=== PATIENT | female | born 1950 ===

== ENCOUNTER → 2022-12-02 | Outpatient (CLI) | payer MEDICARE, OTHER ==
[2022-12-05 15:08] LABS: HPV 16 Negative (Negative); HPV 18 Negative (Negative); HPV OTHER HR TYPES Negative (Negative)
== END ==
LOC: LAB 15:27 → LAB SHORT 15:27
PROVIDERS: Advanced Practice Midwife
DX: Z01.419 Encounter for gynecological examination (general) (routine) without abnormal findings (principal)
CPT/HCPCS: 87624; G0145

== ENCOUNTER 2024-04-24 18:24 | Emergency (ER) | payer MEDICARE, OTHER ==
[~2024-04-24] VITALS: Ht 160 cm; Wt 36.3 kg
[2024-04-24] MEDS ORDERED: Methocarbamol 500 MG Tab PO ONE (19:00)
[2024-04-24 19:22] LABS: Source, Urine Clean Catch
[2024-04-24 19:34] LABS: Appearance, Urine Clear (Clear); Bilirubin, Urine Neg (Neg); Blood, Urine 2+ (Neg); Glucose Qualitative, Urine Neg (Neg); Ketones, Urine Neg (Neg); Leukocyte Esterase, Urine Neg (Neg); Nitrite, Urine Neg (Neg); Protein, Urine Neg (Neg); Specific Gravity, Urine 1.015 (1.003-1.022); Urobilinogen, Urine NORM (Normal)
[2024-04-24 19:41] LABS: Color, Urine Pale Yellow (P-Yellow)
[2024-04-24 19:43] LABS: Bacteria Rare /hpf; Squamous Epithelial Cells Rare /hpf (Few); White Blood Cells, Urine 0-2 /hpf (0-5)
[2024-04-24 20:01] VITALS: BP 168/91
[2024-04-24] MEDS ORDERED: Robaxin750 MG PO (20:55)
[2024-04-24] MEDS ORDERED: Voltaren100 GM TOP (20:55)
[2024-04-24] MEDS ORDERED: LIDO700A20 TOP (20:55)
[2024-04-25] MEDS ORDERED: Voltaren100 GM TOP (09:19)
[2024-04-25] MEDS ORDERED: LIDO700A20 TOP (09:20)
== END 2024-04-24 21:30 | disposition home or self-care (01) ==
LOC: ER 18:24
PROVIDERS: Student in an Organized Health Care Education/Training Program
DX: S39.012A Strain of muscle, fascia and tendon of lower back, initial encounter (principal); X58.XXXA Exposure to other specified factors, initial encounter; M54.16 Radiculopathy, lumbar region; I10 Essential (primary) hypertension
CPT/HCPCS: 81001; 99283-25; A9270; P9612

== ENCOUNTER → 2024-04-29 | Outpatient (CLI) | payer MEDICARE, OTHER ==
[~2024-04-29] MED LIST: LIDO700A20 TOP; Robaxin750 MG PO; Voltaren100 GM TOP
== END | disposition home or self-care (01) ==
LOC: LAB 19:13 → LAB SHORT 19:13
DX: R31.29 Other microscopic hematuria (principal)
CPT/HCPCS: 87086

== ENCOUNTER 2024-05-20 13:36 | Emergency (ER) | payer MEDICARE, OTHER ==
[~2024-05-20] VITALS: Ht 157.5 cm; Wt 42.6 kg
[2024-05-20 14:18] VITALS: BP 138/79
[2024-05-20 15:19] LABS: BASOPHILS ABSOLUTE AUTO 0.02 K/mm3 (0.00-0.23); BASOPHILS PERCENT AUTO 1 % (0-2); EOSINOPHILS ABSOLUTE AUTO 0.01 K/mm3 (0.00-0.68); EOSINOPHILS PERCENT AUTO 0 % (0-6); Hematocrit 35.8 % (33.0-51.0); IMMATURE GRAN ABSOLUTE AUTO 0.02 K/mm3 (0.00-0.10); IMMATURE GRAN PERCENT AUTO 1 % (0-1); LYMPHOCYTES ABSOLUTE AUTO 0.66 K/mm3 (0.84-5.20); LYMPHOCYTES PERCENT AUTO 17 % (21-46); MONOCYTES ABSOLUTE AUTO 0.48 K/mm3 (0.16-1.47); MONOCYTES PERCENT AUTO 13 % (4-13); Mean Corpuscular HGB 29.6 pg (26.0-34.0); Mean Corpuscular HGB Conc 33.5 g/dL (31.5-36.5); Mean Corpuscular Volume 88 fL (80-100); Mean Platelet Volume 10.3 fL (9.1-12.4); NEUTROPHILS ABSOLUTE AUTO 2.64 K/mm3 (1.96-9.15); NEUTROPHILS PERCENT AUTO 69 % (41-73); Platelet Count 222 K/mm3 (150-400); RDW Coefficient Variation 13.2 % (11.7-14.2); RDW Standard Deviation 43.3 fL (35.1-46.3); Red Blood Cell Count 4.06 M/mm3 (3.80-5.20); White Blood Cell Count 3.83 K/mm3 (4.00-11.30)
[2024-05-20 15:40] LABS: Albumin, Blood 3.1 g/dL (3.4-5.0); Albumin/Globulin Ratio 0.8 (0.8-1.8); Bilirubin, Total 0.3 mg/dL (0.1-1.0); Bun/Creatinine Ratio 19.9 (12.0-20.0); Calcium, Blood 8.8 mg/dL (8.5-10.1); Creatinine, Blood 0.5 mg/dL (0.40-1.00); Globulin, Blood 4.1 g/dL (2.2-4.0); Potassium, Blood 4.5 mmol/L (3.5-5.5); Total Protein, Blood 7.2 g/dL (6.4-8.2)
[2024-05-20] MEDS ORDERED: Lasix20 MG PO (16:51)
== END 2024-05-20 17:35 | disposition home or self-care (01) ==
LOC: ER 13:36
PROVIDERS: Student in an Organized Health Care Education/Training Program
DX: R60.0 Localized edema (principal); I87.2 Venous insufficiency (chronic) (peripheral)
CPT/HCPCS: 80053; 85025; 93970; 99284-25

== ENCOUNTER 2024-05-22 16:32 | Emergency (ER) | payer MEDICARE, OTHER ==
[~2024-05-22] VITALS: Ht 157.5 cm; Wt 42.6 kg
[~2024-05-22 16:32] MED LIST changes: +Lasix20 MG PO
[2024-05-22] MEDS ORDERED: Acetaminophen 500 MG Tab PO ONE (19:15)
[2024-05-22] MEDS ORDERED: Ketorolac Tromethamine 30mg Vial IV ONE (19:15)
[2024-05-22] MEDS ORDERED: Ibuprofen600 MG PO (19:17)
[2024-05-22] MEDS ORDERED: ACET500 PO (19:17)
[2024-05-22 20:35] VITALS: BP 137/64
== END 2024-05-22 20:45 | disposition home or self-care (01) ==
LOC: ER 16:32
DX: M80.88XA Other osteoporosis with current pathological fracture, vertebra(e), initial encounter for fracture (principal); I10 Essential (primary) hypertension; Z79.899 Other long term (current) drug therapy
CPT/HCPCS: 96374; 99283-25; A9270; J1885

== ENCOUNTER 2024-05-25 17:57 | Inpatient (IN) | payer MEDICARE, OTHER ==
[~2024-05-25] VITALS: Ht 160 cm; Wt 42.6 kg
[~2024-05-25 17:57] MED LIST changes: +ACET500 PO; +Ibuprofen600 MG PO
[2024-05-25 18:28] LABS: BASOPHILS ABSOLUTE AUTO 0.03 K/mm3 (0.00-0.23); BASOPHILS PERCENT AUTO 1 % (0-2); EOSINOPHILS ABSOLUTE AUTO 0.03 K/mm3 (0.00-0.68); EOSINOPHILS PERCENT AUTO 1 % (0-6); Hematocrit 30.8 % (33.0-51.0); Hemoglobin 10.2 g/dL (11.5-16.0); IMMATURE GRAN ABSOLUTE AUTO 0.02 K/mm3 (0.00-0.10); IMMATURE GRAN PERCENT AUTO 0 % (0-1); LYMPHOCYTES ABSOLUTE AUTO 0.75 K/mm3 (0.84-5.20); LYMPHOCYTES PERCENT AUTO 16 % (21-46); MONOCYTES ABSOLUTE AUTO 0.69 K/mm3 (0.16-1.47); MONOCYTES PERCENT AUTO 15 % (4-13); Mean Corpuscular HGB 29.7 pg (26.0-34.0); Mean Corpuscular HGB Conc 33.1 g/dL (31.5-36.5); Mean Corpuscular Volume 90 fL (80-100); Mean Platelet Volume 9.2 fL (9.1-12.4); NEUTROPHILS ABSOLUTE AUTO 3.15 K/mm3 (1.96-9.15); NEUTROPHILS PERCENT AUTO 68 % (41-73); Platelet Count 243 K/mm3 (150-400); RDW Coefficient Variation 13.4 % (11.7-14.2); Red Blood Cell Count 3.44 M/mm3 (3.80-5.20); White Blood Cell Count 4.67 K/mm3 (4.00-11.30)
[2024-05-25 18:41] LABS: Source, Urine Voided
[2024-05-25 18:48] LABS: Appearance, Urine Clear (Clear); Bilirubin, Urine Neg (Neg); Blood, Urine 1+ (Neg); Glucose Qualitative, Urine Neg (Neg); Ketones, Urine Neg (Neg); Leukocyte Esterase, Urine Neg (Neg); Nitrite, Urine Neg (Neg); Protein, Urine Neg (Neg); Specific Gravity, Urine 1.005 (1.003-1.022); Urobilinogen, Urine NORM (Normal)
[2024-05-25 18:49] LABS: Color, Urine Pale Yellow (P-Yellow)
[2024-05-25 19:00] LABS: Albumin, Blood 2.5 g/dL (3.4-5.0); Albumin/Globulin Ratio 0.7 (0.8-1.8); Bilirubin, Total 0.3 mg/dL (0.1-1.0); Bun/Creatinine Ratio 27.3 (12.0-20.0); Calcium, Blood 7.8 mg/dL (8.5-10.1); Creatinine, Blood 0.59 mg/dL (0.40-1.00); Globulin, Blood 3.7 g/dL (2.2-4.0); Potassium, Blood 4.1 mmol/L (3.5-5.5); Thyroid Stimulating Hormone 8.04 uIU/mL (0.360-4.800); Total Protein, Blood 6.2 g/dL (6.4-8.2)
[2024-05-25 19:04] LABS: Bacteria Rare /hpf; Red Blood Cells, Urine 0-2 /hpf (0-2); Squamous Epithelial Cells Rare /hpf (Few); White Blood Cells, Urine 0-2 /hpf (0-5)
[2024-05-25] MEDS ORDERED: Ondansetron HCl 2 MG / ML 2ML Vial IV ONE (19:30)
[2024-05-25] MEDS ORDERED: Ketorolac Tromethamine 15mg Vial IV ONE (19:30)
[2024-05-25] MEDS ORDERED: Morphine Sulfate 4 MG/1 ML Injection IV ONE (19:30)
[2024-05-25 21:19] LABS: Free Thyroxine 1.25 ng/dL (0.70-1.60)
[2024-05-25 21:20] LABS: Triiodothyronine, Free 2.26 pg/mL (2.18-3.98)
[2024-05-26] MEDS ORDERED: Acetaminophen 325 MG TABLET PO ONE (04:55)
[2024-05-26] MEDS ORDERED: OxyCODONE HCL 5 MG TAB PO PRN (13:30)
[2024-05-26] MEDS ORDERED: Morphine Sulfate 4 MG/1 ML Injection IV PRN (13:30)
[2024-05-26] MEDS ORDERED: Acetaminophen 500 MG Tab PO SCH (16:00)
[2024-05-26] MEDS ORDERED: FLU VACC TS2024-25(6MOS UP)/PF 45 MCG/0.5 ML SYRINGE IM SCH (16:45)
[2024-05-26] MEDS ORDERED: Furosemide 10 MG / ML 2ML Vial IV ONE (18:00)
[2024-05-26 20:32] VITALS: BP 128/69
[2024-05-26] MEDS ORDERED: IBUP600 PO (20:48)
[2024-05-27 03:57] VITALS: BP 137/88
--- NOTE | 2024-05-27 06:05 | NUR ---
SHIFT SUMMARY PATIENT IS ALERT AND ORIENTED. PATIENT HAS HAD NO ACUTE EVENTS THIS SHIFT. PATIENT HAS NO COMPLAINTS OF NAUSEA, SOB OR VOMITTING THIS SHIFT. PATIENT HAS COMPLAINED OF PAIN AND MEDICATED PER EMAR. VITAL SIGNS REVIEWED. PUREWICK IN PLACE. WILL MONITOR UNTIL SHIFT CHANGE.
[2024-05-27 06:18] LABS: BASOPHILS ABSOLUTE AUTO 0.02 K/mm3 (0.00-0.23); BASOPHILS PERCENT AUTO 1 % (0-2); EOSINOPHILS ABSOLUTE AUTO 0.05 K/mm3 (0.00-0.68); EOSINOPHILS PERCENT AUTO 1 % (0-6); Hematocrit 33.7 % (33.0-51.0); Hemoglobin 11.4 g/dL (11.5-16.0); IMMATURE GRAN ABSOLUTE AUTO 0.01 K/mm3 (0.00-0.10); IMMATURE GRAN PERCENT AUTO 0 % (0-1); LYMPHOCYTES ABSOLUTE AUTO 1.09 K/mm3 (0.84-5.20); LYMPHOCYTES PERCENT AUTO 26 % (21-46); MONOCYTES ABSOLUTE AUTO 0.52 K/mm3 (0.16-1.47); MONOCYTES PERCENT AUTO 12 % (4-13); Mean Corpuscular HGB 29.4 pg (26.0-34.0); Mean Corpuscular HGB Conc 33.8 g/dL (31.5-36.5); Mean Corpuscular Volume 87 fL (80-100); Mean Platelet Volume 9.8 fL (9.1-12.4); NEUTROPHILS ABSOLUTE AUTO 2.54 K/mm3 (1.96-9.15); NEUTROPHILS PERCENT AUTO 60 % (41-73); Platelet Count 295 K/mm3 (150-400); RDW Coefficient Variation 13.3 % (11.7-14.2); RDW Standard Deviation 41.9 fL (35.1-46.3); Red Blood Cell Count 3.88 M/mm3 (3.80-5.20); White Blood Cell Count 4.23 K/mm3 (4.00-11.30)
[2024-05-27 06:44] LABS: Albumin, Blood 2.4 g/dL (3.4-5.0); Albumin/Globulin Ratio 0.7 (0.8-1.8); Bilirubin, Total 0.4 mg/dL (0.1-1.0); Calcium, Blood 8.7 mg/dL (8.5-10.1); Creatinine, Blood 0.42 mg/dL (0.40-1.00); Globulin, Blood 3.6 g/dL (2.2-4.0); Magnesium, Blood 1.6 mg/dL (1.6-2.4); Phosphorus, Blood 3.1 mg/dL (2.5-4.9); Potassium, Blood 4.1 mmol/L (3.5-5.5)
[2024-05-27 07:17] VITALS: BP 127/70
[2024-05-27] MEDS ORDERED: Enoxaparin 40 MG/0.4 ML SYR SC SCH (09:00)
[2024-05-27] MEDS ORDERED: TraMADol HCl 50 MG Tab PO PRN (13:15)
[2024-05-27 15:21] VITALS: BP 130/75
[2024-05-27] MEDS ORDERED: Furosemide 20 MG Tab PO SCH (15:43)
--- NOTE | 2024-05-27 20:14 | NUR ---
SUMMARY- PT A/O X4, VERBAL AND COOPERATIVE. SEVERE PAIN WITH MOVEMENT. ADMIN OXYCODONE 2.5MG FOR PAIN THIS AM, PT STATES IT HELPED FOR PAIN BUT MADE HER HEAD FEEL FUNNY AND SHE DOESN'T WANT IT ANYMORE. PT ALSO REFUSED HER LASIX, DESPITE RN EDUCATION, STATES SHE DOESN'T WANT TO ADD INSULT TO HER BODY ANY MORE. PT'S CAREGIVERS IN HER ROOM MOST OF THE DAY, SUPPORTIVE IN CARE. REPORTED TO BRENDA JUNIOR
[2024-05-27 20:21] VITALS: BP 141/83
[2024-05-28 03:15] VITALS: BP 135/79
[2024-05-28] MEDS ORDERED: Levothyroxine Sodium 0.025 MG Tab PO SCH (06:00)
[2024-05-28 07:15] VITALS: BP 145/83
[2024-05-28 15:25] VITALS: BP 113/66
[2024-05-28 19:37] VITALS: BP 114/70
--- NOTE | 2024-05-29 04:14 | NUR ---
SHIFT SUMMARY PATIENT HAD NO ACUTE CHANGES. ALERT AND ORIENTED WITH ONE ASSIST W/FWW/GB TO BSC. PIV INTACT. PUREWICK IN PLACE. DENIES CHEST PAIN, SOB, AND N/V. VSS/AFEBRILE. FAMILY PRESENT AT SHIFT CHANGE. COOPERATIVE WITH CARE. CALL LIGHT IN REACH. BED IN LOWEST POSITION. WILL CONTINUE TO MONITOR UNTIL DAY SHIFT NURSE ASSUMES CARE.
[2024-05-29 05:52] VITALS: BP 130/71
[2024-05-29 07:00] VITALS: BP 145/84
[2024-05-29] MEDS ORDERED: FURO20 PO (09:54)
[2024-05-29] MEDS ORDERED: ACET325 PO (09:54)
[2024-05-29] MEDS ORDERED: EUTHYROX50 MCG PO (09:55)
[2024-05-29] MEDS ORDERED: TRAM50 PO (09:56)
--- NOTE | 2024-05-29 11:52 | NUR ---
THIS RN CALLED [facility] TO GIVE REPORT. ATTEMPT UNSUCCESSFUL. NO ANSWER FROM RN.
--- NOTE | 2024-05-29 12:00 | NUR ---
DISCHARGE NOTE PT D/C TO SNF. PT A&OX4, VSS, AMB W/ ASSIST, TOLERATING PO, VOIDING, AND PAIN MANAGED PER EMAR. BELONGINGS WERE RETURNED AND DISCHARHE PACKET GIVEN TO TRANSPORT. HARD SCRIPT PLACED IN PACKET. PT ESCOURTED OUT VIA W/C BY TRANSPORT. ATTEMPT TO CALL [facility] UNSUCCESSFUL, NO ANSWER FROM RN.
== END 2024-05-29 12:00 | DRG 312 ==
LOC: ER 17:57 → MEDS 05-26 17:39 → ERHOLD 05-26 17:39 → MEDS 05-26 20:10 → ENPENDDIS 05-29 11:27 → MEDS 05-29 12:00
PROVIDERS: Emergency Medicine; ADMIT Family Medicine
DX: R55 Syncope and collapse (principal); E43 Unspecified severe protein-calorie malnutrition; Z68.1 Body mass index [BMI] 19.9 or less, adult; M80.08XA Age-related osteoporosis with current pathological fracture, vertebra(e), initial encounter for fracture; I87.2 Venous insufficiency (chronic) (peripheral); E03.9 Hypothyroidism, unspecified; K21.9 Gastro-esophageal reflux disease without esophagitis; I10 Essential (primary) hypertension; F41.9 Anxiety disorder, unspecified; R62.7 Adult failure to thrive; R79.89 Other specified abnormal findings of blood chemistry; R53.81 Other malaise; Z79.1 Long term (current) use of non-steroidal anti-inflammatories (NSAID); Z79.899 Other long term (current) drug therapy; Z79.891 Long term (current) use of opiate analgesic
CPT/HCPCS: 36415; 72070; 72100; 80053; 81001; 83735; 83880; 84100; 84439; 84443; 84481; 84484; 85025; 92610; 93306; 96374; 96375; 97162; 97165; 97530; 97535; 99285-25; A9270; J1650; J1885; J2270; J2405

== ENCOUNTER → 2024-08-21 | Outpatient (CLI) | payer MEDICARE, OTHER ==
[~2024-08-21] MED LIST changes: +ACET325 PO; +EUTHYROX50 MCG PO; +FURO20 PO; +IBUP600 PO; +TRAM50 PO
[2024-08-21 12:00] LABS: BASOPHILS ABSOLUTE AUTO 0.03 K/mm3 (0.00-0.23); BASOPHILS PERCENT AUTO 1 % (0-2); EOSINOPHILS ABSOLUTE AUTO 0.05 K/mm3 (0.00-0.68); EOSINOPHILS PERCENT AUTO 1 % (0-6); Hematocrit 32.9 % (33.0-51.0); Hemoglobin 10.8 g/dL (11.5-16.0); IMMATURE GRAN ABSOLUTE AUTO 0.01 K/mm3 (0.00-0.10); IMMATURE GRAN PERCENT AUTO 0 % (0-1); LYMPHOCYTES ABSOLUTE AUTO 0.98 K/mm3 (0.84-5.20); LYMPHOCYTES PERCENT AUTO 27 % (21-46); MONOCYTES ABSOLUTE AUTO 0.47 K/mm3 (0.16-1.47); MONOCYTES PERCENT AUTO 13 % (4-13); Mean Corpuscular HGB 27.9 pg (26.0-34.0); Mean Corpuscular HGB Conc 32.8 g/dL (31.5-36.5); Mean Corpuscular Volume 85 fL (80-100); Mean Platelet Volume 12.5 fL (9.1-12.4); NEUTROPHILS ABSOLUTE AUTO 2.06 K/mm3 (1.96-9.15); NEUTROPHILS PERCENT AUTO 57 % (41-73); Platelet Count 170 K/mm3 (150-400); RDW Coefficient Variation 14.9 % (11.7-14.2); RDW Standard Deviation 45.9 fL (35.1-46.3); Red Blood Cell Count 3.87 M/mm3 (3.80-5.20)
[2024-08-21 12:36] LABS: Free Thyroxine 0.92 ng/dL (0.70-1.60); Magnesium, Blood 1.9 mg/dL (1.6-2.4)
[2024-08-21 12:40] LABS: Albumin/Globulin Ratio 0.7 (0.8-1.8); Bilirubin, Total 0.3 mg/dL (0.1-1.0); Bun/Creatinine Ratio 33.7 (12.0-20.0); Calcium, Blood 8.7 mg/dL (8.5-10.1); Creatinine, Blood 0.45 mg/dL (0.40-1.00); Globulin, Blood 4.1 g/dL (2.2-4.0); Potassium, Blood 4.2 mmol/L (3.5-5.5); Thyroid Stimulating Hormone 3.51 uIU/mL (0.360-4.800); Total Protein, Blood 7.1 g/dL (6.4-8.2)
== END ==
LOC: LAB 11:38 → LAB SHORT 11:38
PROVIDERS: Family Medicine
DX: R79.89 Other specified abnormal findings of blood chemistry (principal); M62.838 Other muscle spasm
CPT/HCPCS: 80053; 83735; 84439; 84443; 85025